=== PATIENT | female | born 1985 | race Caucasian/White ===

== ENCOUNTER 2016-10-11 04:12 | Emergency (ER) | payer OTHER, MEDICAID ==
[2016-10-11 07:08] VITALS: BP 100/67
== END 2016-10-11 07:08 | disposition home or self-care (01) ==
LOC: ED 04:12
DX: L27.0 Generalized skin eruption due to drugs and medicaments taken internally (principal); T43.295A Adverse effect of other antidepressants, initial encounter; Z88.8 Allergy status to other drugs, medicaments and biological substances; Y92.89 Other specified places as the place of occurrence of the external cause
CPT/HCPCS: J0171; J7512; Q0163

== ENCOUNTER 2016-10-12 09:11 | Emergency (ER) | payer OTHER ==
[2016-10-12 12:45] VITALS: BP 94/51
== END 2016-10-12 12:45 | disposition home or self-care (01) ==
LOC: ED 09:11
DX: T78.40XA Allergy, unspecified, initial encounter (principal); X58.XXXA Exposure to other specified factors, initial encounter
CPT/HCPCS: J0171; J1200; J2930; J7512; Q0163

== ENCOUNTER 2017-07-20 20:48 | Emergency (ER) | payer OTHER, MEDICAID ==
[2017-07-21 01:08] VITALS: BP 126/69
== END 2017-07-21 01:08 | disposition home or self-care (01) ==
LOC: ED 20:48
DX: R51 Headache (principal); Z88.6 Allergy status to analgesic agent; Z88.8 Allergy status to other drugs, medicaments and biological substances
CPT/HCPCS: J1200; J2765

== ENCOUNTER 2017-09-12 22:32 | Emergency (ER) | payer OTHER, MEDICAID ==
[~2017-09-12] VITALS: Ht 167.6 cm; Wt 68.9 kg
[2017-09-13 00:55] VITALS: BP 126/77
== END 2017-09-13 00:55 | disposition home or self-care (01) ==
LOC: ED 22:32
DX: L02.411 Cutaneous abscess of right axilla (principal); D64.9 Anemia, unspecified; Z88.8 Allergy status to other drugs, medicaments and biological substances
CPT/HCPCS: J2001